=== PATIENT | male | born 1990 | race Caucasian/White ===

== ENCOUNTER 2017-02-22 10:00 | Emergency (ER) | payer OTHER | END 2017-02-22 13:24 | disposition home or self-care (01) | LOC: FER 10:00 | DX: S52.572A Other intraarticular fracture of lower end of left radius, initial encounter for closed fracture (principal); W19.XXXA Unspecified fall, initial encounter; Y92.89 Other specified places as the place of occurrence of the external cause | CPT/HCPCS: 73090 ==

== ENCOUNTER → 2017-02-24 | Day surgery (SDC) | payer OTHER ==
[~2017-02-24] VITALS: Ht 175.3 cm; Wt 126.5 kg
[2017-02-24 12:55] LABS: HCT 42.6 % (42.0-52.0); MCH 30.5 pg (25.0-31.0); MCHC 35.2 g/dL (32.0-36.0); MCV 86.6 fL (78.0-100.0); MPV 8.7 fL (6.0-9.5); RBC 4.92 M/uL (4.70-6.00); RDW 13.2 % (11.5-14.0); WBC 8.7 K/uL (4.0-10.5)
[2017-02-24 13:00] LABS: PROTHROMBIN TIME 12.8 SECONDS (11.7-14.0); PTT 26.3 SECONDS (23.2-31.4)
[2017-02-24 13:23] LABS: CREATININE 0.9 mg/dL (0.7-1.2); POTASSIUM 3.6 mmol/L (3.5-5.1)
== END | disposition home or self-care (01) ==
LOC: FAS 11:46
PROVIDERS: Legal Medicine
DX: S52.502A Unspecified fracture of the lower end of left radius, initial encounter for closed fracture (principal); S52.602A Unspecified fracture of lower end of left ulna, initial encounter for closed fracture; W17.89XA Other fall from one level to another, initial encounter; K21.9 Gastro-esophageal reflux disease without esophagitis
CPT/HCPCS: 36415; 71010; 73100; 76000; 80048; 85610; 85730; 93005; C1713; J0690; J1170; J2704; J2795; J3010